=== PATIENT | male | born 1980 | race Caucasian/White ===

== ENCOUNTER 2019-04-28 15:32 | Inpatient (IN) ==
[2019-04-28] MEDS ORDERED: 0.9 % Sodium Chloride 1,000 ML IVC ONE (16:33)
[2019-04-28] MEDS ORDERED: Ondansetron 4 MG/2 ML VIAL IVP ONE (16:33)
[2019-04-28] MEDS ORDERED: Isovue-370 500 ML BOTTLE IVP ONE (16:33)
--- NOTE | 2019-04-28 16:35 | Emergency Department Note ---
Disposition Clinical Impression: Chest pain, Acute renal failure, Hypercalcemia STEMI (ST elevation myocardial infarction) Qualifiers: Involved coronary artery: unspecified coronary artery Qualified Code(s): I21.3 - ST elevation (STEMI) myocardial infarction of unspecified site Disposition: Admitted As Inpatient Condition: Critical Referrals: NONE,PCP [Primary Care Provider] - Forms: ED Satisfaction Letter Time of Disposition: 17:00 Chest Pain HPI - General Chief Complaint: ED Chest Pain Stated Complaint: N/V, Chest pain Time Seen by Provider: 04/28/19 16:23 Source: EMS Limitations: no limitations Vital Signs Reviewed: Yes Nursing Notes Reviewed: Yes - History of Present Illness HPI Narrative: 39-year-old male presents emergency department after concern for feeling like c ramps and Flexeril today as well as chest tightness. Patient states that the chest tightness getting worse and he feels very sweaty. Patient denies a history of coronary artery disease, but states that he is a smoker. Reports that his sister had a heart attack in her 30s. States that he has been outside for the last 4 hours and was very sweaty and went on to take a shower before stating that he felt like he had a lot of charley horses in his legs. Duration: constant Severity scale (1-10): 7 - Related Data Home Medications Medication Instructions Recorded Confirmed Buprenorphine HCl/Naloxone HCl 1 film SL BID 02/09/18 02/09/18 [Suboxone 8 mg-2 mg Sl Film] Omeprazole [PriLOSEC] 20 mg PO DAILY 02/09/18 02/09/18 Allergies Allergy/AdvReac Type Severity Reaction Status Date / Time No Known Allergies Allergy Verified 02/09/18 09:29 All systems ED: reviewed and negative except as stated. Review of Systems: As Per HPI Constitutional: Reports: chills. Denies: fever Cardiovascular: Reports: chest pain Respiratory: Reports: dyspnea Gastrointestinal: Reports: nausea, vomiting. Denies: abdominal pain Genitourinary: Denies: dysuria Musculoskeletal: Denies: back pain Chest Pain PMH - Past Medical History Medical history: Reports: GERD, hepatitis, other Surgical history: Reports: no surgical history Psychiatric history: Reports: no psych history - Social History Smoking Status: Current every day smoker Alcohol use: Reports: none Drug use: Reports: none Physical Exam - General Limitations: no limitations General appearance: alert - Head Head exam: normocephalic - Eye Eye exam: Present: EOMI - ENT ENT exam: mucous membranes moist - Neck Neck exam: Present: trachea midline - Chest Chest inspection: Present: symmetric chest wall rise - Respiratory Respiratory exam: Present: normal lung sounds bilaterally. Absent: respiratory distress, accessory muscle use - Cardiovascular Cardiovascular exam: Present: bradycardia, normal heart sounds - Abdominal Exam Abdominal exam: Present: soft, Non-Tender. Absent: distention, guarding, rebound, rigidity - Extremities Exam Extremities exam: Present: normal capillary refill - Back Exam Back exam: Present: full ROM - Neurological Exam Neurological exam: Present: alert, oriented X3 - Skin Skin exam: Present: warm, dry, intact, diaphoresis Course Vital Signs Temperature 90.0 F L 04/28/19 15:39 Pulse Rate 72 04/28/19 15:39 Respiratory Rate 20 04/28/19 15:39 Blood Pressure 135/92 04/28/19 15:39 O2 Sat by Pulse Oximetry 96 04/28/19 15:39 Temperature 96 F L 04/28/19 17:03 Pulse Rate 49 04/28/19 17:03 Respiratory Rate 17 04/28/19 17:03 Blood Pressure 125/69 04/28/19 17:03 O2 Sat by Pulse Oximetry 99 04/28/19 17:03 Oxygen Delivery Oxygen Delivery Nasal Cannula Chest Pain - MDM Narrative Medical decision making narrative: 39-year-old male presents emergency department with concern for chest tightness with inferior ST elevation concerning for acute ST elevation myocardial in farction. Patient's initial ECG that we received did not show evidence of any ischemic changes. Repeat that was performed at [address] elevations that are new in leads 2, 3, aVF, with new T-wave inversion in aVL that was not seen on previous ECG. Also noted that patient has an ectopic atrial rhythm as well. Patient fluctuates with heart rates in the 60s to low 40s with systolic blood pressures approaching the low 100s. Initial temperature that was recorded was 90 degrees Fahrenheit, but patient was extremely diaphoretic. Repeat temperature was 96 degrees axillary. Upon receipt of the second ECG at 1652, Quality Control Coordinator was activated. Interventional cardiology, Dr. Beltran, received picture of the ECG. Patient given aspirin, Brilinta, started on heparin. Pacer pads were placed. Patient was given fentanyl for pain. He was given a liter of fluids IV. Patient made hemodynamically stable while heart catheterization team put in place. Chest X-Ray 04/28/19 16:24 IMPRESSION: No acute abnormality detected. D/ / Clinton Vasquez MD / Clinton Vasquez MD Interpreting Provider: Clinton Vasquez MD - Lab Data Result diagrams: 04/28/19 15:55 04/28/19 15:55 Lab Results 04/28/19 04/28/19 04/28/19 Range/Units 15:55 15:55 15:55 WBC 15.1 H (4.3-11.1) K/mcL RBC 6.15 H (4.19-5.50) M/mcL Hgb 18.4 H (12.9-16.9) g/dL Hct 52.1 H (37.5-50.1) % MCV 84.7 (83.0-100.0) fL MCH 29.9 (28.0-33.3) pg MCHC 35.3 (31.6-35.5) g/dL RDW 12.0 (11.5-14.5) % Plt Count 337 (140-400) K/mcL MPV 10.2 (9.4-12.4) fL Immature Gran % 0.6 (0-4) % Seg Neutrophils % 71.4 % Lymphocytes % 20.1 % Monocytes % 7.0 % Eosinophils % 0.3 % Basophils % 0.6 % Neutrophils # 10.8 H (1.6-8.9) K/mcL Lymphocytes # 3.0 (0.6-4.6) K/mcL Monocytes # 1.1 (0.0-1.3) K/mcL Eosinophils # 0.1 (0.0-0.6) K/mcL Basophils # 0.1 (0.0-0.2) K/mcL Nucleated RBCs/100 WBC 0.1 H (0) /100 WBC PT 11.4 (9.4-12.1) Seconds INR 1.0 APTT 31.0 (26.0-36.0) Seconds Heparin Anti-Xa, Unfract 0.04 L (0.30-0.70) IU/mL Sodium 139 (136-145) mEq/L Potassium 3.7 (3.5-5.1) mEq/L Chloride 97 L (98-107) mEq/L Carbon Dioxide 19 L (23-29) mEq/L BUN 25 H (6-20) mg/dL Creatinine 1.53 H (0.70-1.30) mg/dL Est GFR ( Amer) > 60 (> 60) Est GFR (Non-Af Amer) 51 L (> 60) BUN/Creatinine Ratio 16 (6-26) Glucose 106 H (70-105) mg/dL Calculated Osmolality 293 (280-300) Calcium 12.1 H (8.6-10.3) mg/dL Troponin I < 0.03 (< 0.04) ng/mL B-Natriuretic Peptide (Less than 100) pg/mL 04/28/19 Range/Units 15:55 WBC (4.3-11.1) K/mcL RBC (4.19-5.50) M/mcL Hgb (12.9-16.9) g/dL Hct (37.5-50.1) % MCV (83.0-100.0) fL MCH (28.0-33.3) pg MCHC (31.6-35.5) g/dL RDW (11.5-14.5) % Plt Count (140-400) K/mcL MPV (9.4-12.4) fL Immature Gran % (0-4) % Seg Neutrophils % % Lymphocytes % % Monocytes % % Eosinophils % % Basophils % % Neutrophils # (1.6-8.9) K/mcL Lymphocytes # (0.6-4.6) K/mcL Monocytes # (0.0-1.3) K/mcL Eosinophils # (0.0-0.6) K/mcL Basophils # (0.0-0.2) K/mcL Nucleated RBCs/100 WBC (0) /100 WBC PT (9.4-12.1) Seconds INR APTT (26.0-36.0) Seconds Heparin Anti-Xa, Unfract (0.30-0.70) IU/mL Sodium (136-145) mEq/L Potassium (3.5-5.1) mEq/L Chloride (98-107) mEq/L Carbon Dioxide (23-29) mEq/L BUN (6-20) mg/dL Creatinine (0.70-1.30) mg/dL Est GFR ( Amer) (> 60) Est GFR (Non-Af Amer) (> 60) BUN/Creatinine Ratio (6-26) Glucose (70-105) mg/dL Calculated Osmolality (280-300) Calcium (8.6-10.3) mg/dL Troponin I (< 0.04) ng/mL B-Natriuretic Peptide 19 (Less than 100) pg/mL - Radiology Data Radiology results reviewed: Yes I reviewed the patient's radiology results. - EKG Data EKG attestation: Yes I reviewed and interpreted this EKG. EKG results narrative: 16:25 Heart rate 50 bpm, MD interval 140 ms, QRS duration 110 ms, QTC 460 ms, 1 mm of elevation in V3, V4, but no reciprocal changes and probably early repolarization pattern 16:[address] elevations in the inferior leads 2, 3, aVF concerning for STEMI. There is a T-wave inversion in aVL. STEMI alert was called immediately. Dr. Beltran was sent ECG picture. Attestation Statement - Attestation Attestation: I have seen this patient with the resident physician, I have personally evaluated this patient. I had reviewed the chart and document dictation by the resident physician and aM in agreement with the information documented by the resident physician. Please see documentation by the resident physician for complete chart including past medical history, family medical history, review of systems, current history and physical and laboratory and imaging studies. I was present for all procedures, provided direct supervision for all procedures, was present for the entirety of all procedures and provided direct guidance during the procedures. Please see documentation by the resident chapin cardona for any procedures performed. I have reviewed all interpretations of EKGs, and reviewed all EKGs performed on patient's as well. I have also reviewed reports of imaging as provided by radio logy. Patient was brought in by ambulance, for having worked outside for 4 hours, diaphoresis and charley horses would develop chest pain en route to the hospital. arrived at 1545, assigned to me at 1625, notified of patient's arrival, and symptoms, EKG and laboratory studies were ordered. Initial EKG performed at 1625, demonstrated nonspecific abnormality with no evidence of acute ST segment elevation, some poor R-wave progression. At 1636, noted some monitor changes by nursing, patient with persistent chest heaviness and persistent diaphoresis, repeat EKG was obtained at 1637, reviewed by myself at 1638, with acute changes concerning for potential acute ST segment elevation myocardial infarction, appears to be an ectopic atrial rhythm, with ST elevations in II, III, and F aVF, these have the appearance of early repolarization but are dynamic changes with aVL being inverted as well. Initiated cardiac alert, cardiology evaluated the EKG, states that he agrees that this is atypical morphology, but with acute changes in patient's symptoms that continuation with cardiac catheterization is appropriate and he will provide further management thereof. Repeat EKG was ordered during the patient's stay in the emergency department, at 1652 while awaiting cardiac catheterization just for any acute change, appears stable, in regards to this. Basic laboratory studies show a mild leukocytosis chest x-ray showed no acute findings. He was given aspirin and heparin here in the emergency department, he was given IV fluids. Avoided nitroglycerin secondary to inferior abnormality, with potential need for preload dependence. He was given fentanyl for pain. Basic laboratory studies demonstrated acute renal injury, with a creatinine 1.5 up from 1, calcium was elevated at 12.1. Cardiac enzymes were negative. The patient was taken to the Quality Control Coordinator by cardiology prior to any other laboratory studies being resulted including total CPK. Total critical care time as provided by myself excluding any procedures performed was 30 minutes
[2019-04-28] MEDS ORDERED: Aspirin 81 MG TAB.CHEW PO ONE (16:42)
[2019-04-28 16:46] LABS: Basophils # 0.1 K/mcL (0.0-0.2); Basophils % 0.6 %; Eosinophils # 0.1 K/mcL (0.0-0.6); Eosinophils % 0.3 %; Hematocrit 52.1 % (37.5-50.1); Hemoglobin 18.4 g/dL (12.9-16.9); Immature Granulocytes % 0.6 % (0-4); Lymphocytes % 20.1 %; Mean Corpuscular HGB Conc 35.3 g/dL (31.6-35.5); Mean Corpuscular Hemoglobin 29.9 pg (28.0-33.3); Mean Corpuscular Volume 84.7 fL (83.0-100.0); Mean Platelet Volume 10.2 fL (9.4-12.4); Monocytes # 1.1 K/mcL (0.0-1.3); Neutrophils # 10.8 K/mcL (1.6-8.9); Nucleated Red Blood Cells 0.1 /100 WBC (0); Platelet Count 337 K/mcL (140-400); Red Blood Count 6.15 M/mcL (4.19-5.50); Segmented Neutrophils % 71.4 %; White Blood Count 15.1 K/mcL (4.3-11.1)
[2019-04-28] MEDS ORDERED: *HR* Ticagrelor 90 MG TABLET ONE ×2 (16:47→16:59)
[2019-04-28] MEDS ORDERED: *HR* Heparin 5,000 UNIT/ML VIAL ONE (16:47)
[2019-04-28] MEDS ORDERED: 0.9 % Sodium Chloride 1,000 ML ONE ×2 (16:47→16:54)
[2019-04-28] MEDS ORDERED: Aspirin 81 MG TAB.CHEW ONE ×2 (16:47→16:58)
[2019-04-28] MEDS ORDERED: *HR* Ticagrelor 90 MG TABLET PO ONE (16:49)
[2019-04-28] MEDS ORDERED: *HR* Heparin 5,000 UNIT/ML VIAL IVP ONE (16:50)
[2019-04-28] MEDS ORDERED: *HR* Heparin 5,000 UNIT/ML VIAL IVP PRN ×2 (16:50)
[2019-04-28] MEDS ORDERED: *HR* FentaNYL (PF) 100 MCG/2 ML VIAL IVP ONE (16:54)
[2019-04-28] MEDS ORDERED: Verapamil 5 MG/2 ML VIAL ONE (16:54)
[2019-04-28] MEDS ORDERED: ISOVUE-370 200 ML INFUS..BTL ONE (16:55)
[2019-04-28] MEDS ORDERED: *HR* Heparin 10,000 UNIT/10 ML VIAL ONE (16:55)
[2019-04-28] MEDS ORDERED: Heparin 1,000 UNITS/500 mL 500 ML ONE (16:55)
[2019-04-28] MEDS ORDERED: Nitroglycerin 1,000 MCG/10 ML VIAL IV ONE (16:55)
[2019-04-28 16:58] LABS: Prothrombin Time 11.4 Seconds (9.4-12.1)
[2019-04-28] MEDS ORDERED: Heparin 25,000 UNIT/250 ML D5W 25,000 UNIT/250 ML IV.SOLN IVC SCH (17:00)
[2019-04-28] MEDS ORDERED: *HR* FentaNYL (PF) 100 MCG/2 ML VIAL ONE (17:04)
[2019-04-28] MEDS ORDERED: *HR* Midazolam HCl 2 MG/2 ML VIAL ONE ×2 (17:04→17:23)
[2019-04-28 17:07] LABS: BUN/Creatinine Ratio 16 (6-26); Blood Urea Nitrogen 25 mg/dL (6-20); Calcium 12.1 mg/dL (8.6-10.3); Carbon Dioxide 19 mEq/L (23-29); Chloride 97 mEq/L (98-107); Glucose 106 mg/dL (70-105); Osmolality,Calculated 293 (280-300); Potassium 3.7 mEq/L (3.5-5.1); Sodium 139 mEq/L (136-145); Troponin I < 0.03 ng/mL (< 0.04); eGFR For African Americans > 60 (> 60); eGFR For Non-African Americans 51 (> 60)
[2019-04-28 17:15] LABS: Heparin anti-factor XA UFH 0.04 IU/mL (0.30-0.70)
[2019-04-28] MEDS ORDERED: Tirofiban 12.5 MG/250ML 12.5 MG/250 ML BAG ONE (17:23)
[2019-04-28] MEDS ORDERED: Haloperidol Lactate 5 MG/ML VIAL ONE (17:30)
[2019-04-28] MEDS ORDERED: Ondansetron 4 MG/2 ML VIAL IVP PRN (17:40)
--- NOTE | 2019-04-28 17:40 | Pre-Sedation Evaluation ---
Pre-sedation evaluation - Pre-sedation checklist Date of procedure: 04/28/19 Procedure: [facility] Recent Vitals: Last Vital Signs Temp 96 F L 04/28/19 17:03 Pulse 49 04/28/19 17:03 Resp 17 04/28/19 17:03 BP 125/69 04/28/19 17:03 Pulse Ox 99 04/28/19 17:03 H&P (including ROS) documented in medical record: Yes Previous reaction to sedatives/anesthetics: No Dietary Status: NPO after Midnight Dentition: full dentition ASA Classification *see protocol: CLASS II-Mild systemic disease, [id number] to any of the above to indicate emergent Plan of Care: Pt appropriate candidate for procedure/moderate/conscious sedation, Risks/benefits of procedure/sedation discussed w/ patient/family, If not NPO; Risk of intake outweiged by necessity to perform procedure Cardiac Registry (Cardio Only) - Functional Capacity Functional Capacity: >=4 METS with symptoms - Clincal Frailty Scale Clinical Frailty Scale: Managing Well
[2019-04-28 17:47] LABS: Albumin 6.4 g/dL (3.5-5.7); Albumin/Globulin Ratio 1.7 (1.1-2.2); Bilirubin,Direct 0.2 mg/dL (0.0-0.2); Bilirubin,Indirect 0.8 mg/dL (0.0-1.2); Globulin 3.8 g/dL (2.4-3.5); Magnesium 2.4 mg/dL (1.6-2.6); Total Protein 10.2 g/dL (6.4-8.9)
--- NOTE | 2019-04-28 17:58 | Invasive Diagnostic Lab Proc ---
Name: Ryan Cha Date of Study: 04/28/2019 Date: 1980 Ht: 68.1in Medical Record#: [id number] Age: 39 Wt: 138.89lb Gender: Male BSA: 1.75 Order #: [id number] BMI: 21.05 Physicians Procedure Physician: Job Beltran MD, [facility] Referring MD: Referring MD: Staff Name Position Time In Unique Monreal RT (R) Monitor 05:18 PM Markell Monreal RT (R) Scrub 05:18 PM SarayDeanna holliday RT (R) Monitor 05:18 PM Geovanny Post RN Makeup Sales Consultant 05:18 PM Bry Motta RN Makeup Sales Consultant 05:18 PM Indications Indication Unstable Angina Procedures Performed Procedure L HRT ARTERY/VENTRICLE ANGIO Pre-Procedure Checklist Informed consent is complete signed and on chart. H&P is on chart. ID band is on and ID verified with patient. Patient NPO for procedure The procedure was described for the patient and questions were answered. Blood Pressure: 121/60 ECG is on chart. Rhythm: Sinus Bradycardia Plan of Care Patient will tolerate the procedure without complications. Adequate level of comfort will be maintained. Hemodynamics will remain stable Patient will recover from procedure without complications. Respiratory function will be maintained. Cardiac rhythm will remain stable. Patient temperature will be maintained. Patient and/or family have verbalized understanding of the procedure. Patient Education Chief Complaint/Reason for Test: Cardiac Cath Developmental Category: Adult (18-64 years) Developmentally Appropriate for Age: Yes Learning Barriers: None Education Needs: Procedure Education Method: Verbal Information Taught: Cardiac Cath Educational Evaluation: Able to repeat information Intravenous Access Time IV Size Location DC'd Fluid/Drip Rate Units RN 05:12 PM 20g 1 1/4" Patent On Arrival Lt Antecubital 0.9NaCl 25 ml/hr Geovanny Post RN 05:12 PM 20g 1 1/4" Patent On Arrival Rt Antecubital Geovanny Post RN Allergies NKDA No Known Allergies Vital Signs Time BP (mmHg) HR (bpm) O2 Sat. RR (bpm) LOC 05:19 PM / % 5 = Fully awake and oriented or at pre-proc level 05:19 PM / % 4 = Oriented but drowsy 05:20 PM 121 / 60 90 87 % 16 05:24 PM 112 / 65 55 87 % 16 05:32 PM 118 / 69 71 100 % 16 05:37 PM 128 / 74 69 100 % 12 Procedural Medications Time Medication Dose Units Method Given By 05:19 PM Versed 2 mg Intravenous Geovanny Post RN 05:19 PM Fentanyl 50 mcg Intravenous Geovanny Post RN 05:20 PM Oxygen 4 L/min nasal cannula Geovanny Post RN 05:24 PM Lidocaine 2% 8 ml Subcutaneous Job Beltran MD, FACC 05:25 PM Versed 1 mg Intravenous Geovanny Post RN 05:25 PM Fentanyl 25 mcg Intravenous Geovanny Post RN 05:30 PM Haldol 5 mg Intravenous Geovanny Post RN Leslie Score Preprocedure Postprocedure Activity 2- Moves 4 extremities sustained head lift Activity 2- Moves 4 extremities sustained head lift Circulation 2- SBP +/= 20 points of pre-anesthetic level Circulation 2- SBP +/= 20 points of pre-anesthetic level Consciousness 2- Awake and alert oriented x 3 Consciousness 2- Awake and alert oriented x 3 O2 Saturation 2- Able to maintain O2 satruation of 92% on room air O2 Saturation 2- Able to maintain O2 satruation of 92% on room air Respiratory 2- Able to deep breathe and cough well Respiratory 2- Able to deep breathe and cough well Total Score 10 Total Score 10 Contrast Agent: Isovue Diagnostic Contrast: 48 ml Total Contrast: 48 ml Fluoro Dose: 4 mGy Activated Clotting Time Time Seconds to Clot 05:38 PM 245 Procedure Log Time Note Enter By 05:13 PM Pt arrived to laboratory chief 2 at 17:13 twilson 05:13 PM Patient charges- Angio tray pack, Navilyst 3mm J, Pulse Oximetry and ACIST tubing and transducer twilson 05:13 PM Case Delayed no twilson 05:17 PM CathStat 05:18 PM CathStat 05:18 PM Vitals capture started with the following parameters, Patient=Adult, Interval=5 min, Initial Rqziixzp=947 mmHg, Deflation Rate=3 mmHg, Cuff placed on Right Arm 05:18 PM Unique Monreal RT (R) Position: Monitor Time in: 17:18 twilson 05:18 PM Markell Monreal RT (R) Position: Scrub Time in: 17:18 twilson 05:18 PM Deanna So RT (R) Position: Monitor Time in: 17:18 twilson 05:18 PM Sincere, Geovanny RN Position: Makeup Sales Consultant Time in: 17:18 twilson 05:18 PM Bry Motta RN Position: Makeup Sales Consultant Time in: :18 twilson PM Hair removed from procedure site in procedure lab using clippers. Right wrist and Right groin prepped with Chloraprep by Deanna So (Tanner), then patient was draped. Skin intact. PM Physician arrived 17: tw PM Meet and greet completed PM Sign in performed according to hospital policy. Informed consent was obtained. tw PM Procedure start : twilson PM Time: : Versed 2 mg Intravenous Given by Geovanny Post RN PM Time: : Fentanyl 50 mcg Intravenous Given by Geovanny Post RN twilson PM Time: 17: Patient comfortable and pain free: Yes PM Time: :LOC: 5 = Fully awake and oriented or at pre-proc level twilson : PM Clinical Presentation: STEMI or equivalent twilson 05:20 PM HR=90 bpm, OBOP=048/60 mmhg, SpO2=87 %, Resp=16 B/min 05:21 PM Time: 17:20 Oxygen on at 4 L/min per nasal cannula by Geovanny Post RN twilson : PM Recorded ECG: HR=59 Condition=Condition 1 05:23 PM Pressure channel 1 zeroed. 05:23 PM Critical cardiac patient with acute MS was brought emergently to the cardiac rn labor and delivery for immediate coronary angiography and intervention if clinically indicated. tw: PM Time out was performed according to hospital policy. Conscious sedation and anesthesia was achieved (see medication log with in this report above) twilson : PM HR=55 bpm, KILY=922/65 mmhg, SpO2=87 %, Resp=16 B/min 05: PM Time: 17:24 8 ml Lidocaine 2% to right groin Subcutaneous Given by Job Beltran MD, FACC twilson : PM Access obtained by percutaneous puncture. 6Fr 10cm Terumo Hamilton sheath placed in right Femoral artery. [id number] twilson : PM 5Fr FR 4 catheter inserted over the wire DNC twilson 05:25 PM Time: 17:25 Versed 1 mg Intravenous Given by Geovanny Post RN ilson 05:25 PM Time: 17:25 Fentanyl 25 mcg Intravenous Given by Geovanny Post RN 05: PM Wire removed twilson 05: PM RCA angiography performed in multiple views. twilson 05:27 PM Wire reinserted. twilson 05:27 PM Catheter removed tw 05: PM 5Fr FL 4 catheter inserted over the wire [facility] twilson 05:28 PM Wire removed twilson 05:28 PM Recorded Pressure: Ao, HR=58, Condition=Condition 1 (Aorta) Ao 111/73/92 05:28 PM Recorded Pressure: Ao, HR=54, Condition=Condition 1 (Aorta) Ao 96/61/79 05:28 PM Recorded Pressure: Ao, HR=91, Condition=Condition 1 (Aorta) Ao 113/90/102 05:30 PM LCA angiography performed in multiple views. twilson 05:30 PM Recorded Pressure: Ao, HR=75, Condition=Condition 1 (Aorta) Ao 116/85/101 05:31 PM Time: 17:30 Haldol 5 mg Intravenous Given by Geovanny Post RN twilson 05:31 PM Vitals capture stopped. 05:31 PM Vitals capture started with the following parameters, Patient=Adult, Interval=5 min, Initial Aswfeeoa=171 mmHg, Deflation Rate=3 mmHg, Cuff placed on Right Arm 05:31 PM Wire reinserted. tw 05:32 PM Catheter removed tw 05:32 PM 5Fr Pigtail catheter inserted over the wire [facility] tw 05:32 PM Catheter crossed the aortic valve and was selectively placed in the left ventricle. Pressures recorded on pullback for left heart catheterization. tw 05:32 PM Wire removed twilson 05:32 PM Recorded Pressure: LV, HR=54, Condition=Condition 1 (Left Ventricle) LV 115/-20/3 05:32 PM HR=71 bpm, WFFZ=712/69 mmhg, PrN5=715.0 %, Resp=16 B/min 05:33 PM Recorded Pressure: LV, Ao, HR=65, Condition=Condition 1 (Left Ventricle) LV 105/-8/31, (Aorta) Ao 107/56/81 05:33 PM Bolus angiogram of left Ventricle complete: 10 ml/sec for a total of 30 mls twilson 05:33 PM Wire reinserted. tw 05:33 PM Catheter and wire removed, intact. twilson 05:34 PM Bolus angiogram of right Femoral complete: 2 ml/sec for a total of 4 mls twilson 05:34 PM Time: 17:19 Patient comfortable and pain free: Yes twilson 05:34 PM Time: 17:19LOC: 4 = Oriented but drowsy twilson 05:34 PM Drawing an ACT. twilson 05:35 PM Procedure completed at 17:35 04/28/2019 twilson 05:35 PM Did you address ARVIN flow and Dominance? YesCoronary Dominance: right twilson 05:37 PM Sign out completed: Radiation Dose 26.03 mGy, 4.37 Gy/cm2 Fluoro Time: 1.1 Isovue 370 - 200ml contrast 48 ml given by Job Beltran MD, [facility]. Complications: None. The patient was discharged out of the rn labor and delivery in stable condition. Sedation minutes 15. Cardiac Rehab Consult needed: No. Confirmed administered medications: Yes twilson 05:37 PM Isovue 370 - 200ml,1 Bottle(s) used. twilson 05:37 PM Estimated Blood Loss: minimal twilson 05:37 PM Post ECG Sinus Bradycardia twilson 05:37 PM HR=69 bpm, KDDK=374/74 mmhg, KtO5=403.0 %, Resp=12 B/min 05:38 PM 17:38 Post Pulses Bilateral DP & PT 1+ twilson 05:38 PM Information taught Cardiac Cath twilson 05:38 PM Education needs Procedure, Plan of Care, and Responsibilities of Patient in Care twilson 05:38 PM Learning barriers :None twilson 05:38 PM Education Methods Verbal twilson 05:38 PM Education evaluation Able to repeat information twilson 05:38 PM Site status No bleeding/ No Hematoma - Rt Groin as reported by Markell Monreal RT (R) at 17:38 twilson 05:38 PM Sheath left in place to be pulled on floor/holding areaV+Pad twilson 05:38 PM At 17:38 the ACT was 245 seconds. twilson 05:39 PM Opsite applied twilson 05:39 PM Family placed in consult room. twilson 05:42 PM Vitals capture stopped. 05:46 PM Delay to floor No twilson 05:46 PM Patient out of room: 17:46 twilson 05:47 PM Report given to Asif SHI Pt taken to ICU Room #11. 17:47 twilson Complications Complication None Hemodynamics Pressures Site Systolic/A Wave Diastolic/V Wave Mean AO 111 73 92 AO 96 61 79 AO 113 90 102 AO 116 85 101 LV 115 -20 3 LV 105 -8 31 AO 107 56 81 Post Procedure Information Rhythm: Sinus Bradycardia Post procedural instructions were given Site Checks Time Location Status Staff Sheath In? Note 05:38 PM Rt Groin No bleeding/ No Hematoma Markell Monreal RT (R) Yes Pulses Time Site Pre-Procedure Post-Procedure Note 04/28/2019 5:12:00 PM Bilateral DP & PT 1+ 04/28/2019 5:12:00 PM Bilateral radial 1+ 5:38:00 PM Bilateral DP & PT 1+ Updated by RT Slim (R) on 04/28/2019 5:50:03 PM electronically signed on 04/28/2019 5:50:53 PM with status of Final
[2019-04-28] MEDS ORDERED: *HR* Atropine Sulfate 1 MG/10 ML SYRINGE ONE (19:19)
[2019-04-28 19:30] LABS: Albumin 4.8 g/dL (3.5-5.7); Albumin/Globulin Ratio 1.5 (1.1-2.2); Bilirubin,Direct 0.2 mg/dL (0.0-0.2); Bilirubin,Indirect 0.6 mg/dL (0.0-1.2); Bilirubin,Total 0.8 mg/dL (0.3-1.0); Globulin 3.1 g/dL (2.4-3.5); Total Protein 7.9 g/dL (6.4-8.9)
[2019-04-28] MEDS ORDERED: Haloperidol Lactate 5 MG/ML VIAL IVP PRN (20:18)
--- NOTE | 2019-04-28 20:22 | Cardiology History & Physical ---
Date of Encounter: 04/28/19 Time of Encounter: 20:00 Assessment and Plan (1) STEMI (ST elevation myocardial infarction) Current Visit: Yes Status: Acute Concern for inferior STEMI. A/R/B of emergent LHC dw patient including 1% chance of NM//CVA/CABG/ANGELITO/bleeding. Pt aware and agreeable with proceeding. EF assessment to be completed. Cardiac rehab if warranted. The assessment and plan as outlined above was discussed with the patient and/or f amily members who expressed understanding and agreement. All questions were answered. Qualifiers: Involved coronary artery: unspecified coronary artery Qualified Code(s): I21.3 - ST elevation (STEMI) myocardial infarction of unspecified site (2) Chest pain Current Visit: Yes Status: Acute Proceed with [facility] per above. The assessment and plan as outlined above was discussed with the patient and/or family members who expressed understanding and agreement. All questions were answered. Qualifiers: Chest pain type: precordial pain Qualified Code(s): R07.2 - Precordial pain History of Present Illness Chief complaint: leg cramps, nausea/vomiting, chest tightness HPI: Mr. Cha is a 39 year old male smoker with family history of CAD and his tory of opiod drug abuse presents with nausea / vomiting, severe leg cramps, back pain and chest tightness. EKG was concerning for inferior ST elevation and STEMI team was activated. His pains were not improved with aspirin, brilinta and heparin. Past Med Surg Social Fam HX - Past Medical History Medical history: GERD, hepatitis, other Additional medical history: hepatitis C Psychiatric history: no psych history - Past Surgical History Surgical History: no surgical history Additional surgical history: Liver biopsy - Social History Smoking Status: Current every day smoker Smokeless Tobacco Status: No Alcohol use: none Drug use: none Medications and Allergies Buprenorphine HCl/Naloxone HCl [Suboxone 8 mg-2 mg Sl Film] 1 film SL BID 02/09/18 [History] Omeprazole [PriLOSEC] 20 mg PO DAILY 02/09/18 [History] Allergy/AdvReac Type Severity Reaction Status Date / Time No Known Allergies Allergy Verified 02/09/18 09:29 All Systems Review: The remainder of the systems were reviewed and are negative - Constitutional Constitutional: no chills, no fever(s) - EENT Eyes: no blurred vision, no loss of vision Nose, mouth and throat: no bleeding gums, no throat swelling - Cardiovascular Cardiovascular: chest pain at rest, chest pain with exertion - Respiratory Respiratory: no hemoptysis, no wheezing - Gastrointestinal Gastrointestinal: nausea, no hematemesis, no hematochezia - Genitourinary Genitourinary: no hematuria, no nocturia - Musculoskeletal Musculoskeletal: no arthralgias, no myalgias - Integumentary Integumentary: no erythema, no unusual bruising - Neurological Neurological: no syncope, no tingling - Psychiatric Psychiatric: no hallucinations, no panic attacks - Hematological/Lymphatic Hematologic/Lymphatic: no easy bleeding, no easy bruising Physical Examination Vital Signs, Last 4 Hours Temp Pulse Pulse Resp BP Pulse Ox 04/28/19 19:45 58 16 76/56 98 04/28/19 19:40 56 18 114/84 98 04/28/19 19:35 58 20 102/78 98 04/28/19 19:30 978 F H 71 71 18 114/78 98 04/28/19 19:00 97.3 F L 57 62 18 110/61 98 04/28/19 18:30 97.3 F L 69 62 18 100/56 98 04/28/19 18:15 97.3 F L 69 69 18 102/57 98 04/28/19 18:00 97.3 F L 62 62 18 112/76 98 04/28/19 17:50 97.3 F L 66 63 18 103/62 98 04/28/19 17:40 17 125/69 04/28/19 17:03 96 F L 49 17 125/69 99 General: Conversant, Other (severely distressed) HEENT: Atraumatic Neck: No JVD Cardiac: Reg Rate and Rhythm Lungs: Normal Breath Sounds Neuro: Alert and responsive Abdomen: Soft Skin: No rashes noted on visualized skin Musculoskeletal: No Chest Wall Tenderness Extremities: No Edema Results 04/28/19 15:55 04/28/19 15:55 Lab Results 04/28/19 04/28/19 04/28/19 15:55 15:55 15:55 WBC 15.1 H Hgb 18.4 H Hct 52.1 H Plt Count 337 INR 1.0 APTT 31.0 Sodium 139 Potassium 3.7 Chloride 97 L Carbon Dioxide 19 L BUN 25 H Creatinine 1.53 H Glucose 106 H Calcium 12.1 H Magnesium Total Bilirubin AST ALT Alkaline Phosphatase Troponin I < 0.03 B-Natriuretic Peptide Lipase 04/28/19 04/28/19 04/28/19 15:55 15:55 18:37 WBC Hgb Hct Plt Count INR APTT Sodium Potassium Chloride Carbon Dioxide BUN Creatinine Glucose Calcium Magnesium 2.4 2.2 Total Bilirubin 1.0 AST 31 ALT 36 Alkaline Phosphatase 90 Troponin I B-Natriuretic Peptide 19 Lipase 12 04/28/19 18:37 WBC Hgb Hct Plt Count INR APTT Sodium Potassium Chloride Carbon Dioxide BUN Creatinine Glucose Calcium Magnesium Total Bilirubin 0.8 AST 24 ALT 26 Alkaline Phosphatase 69 Troponin I B-Natriuretic Peptide Lipase - EKG Interpretation EKG results cardiology: personally reviewed, sinus rhythm (st elevation in inferior leads, v2 - v3)
[2019-04-28] MEDS: *HR* Buprenorphine HCl 8 MG TAB.SUBL SL SCH (20:54)
[2019-04-28] MEDS: BUPRENORPHINE HCL SL SCH (20:54)
[2019-04-28] MEDS: NALOXONE HCL SL SCH (20:54)
--- NOTE | 2019-04-28 22:06 | Event Note ---
Date of Encounter: 04/28/19 Time of Encounter: 17:55 - Cardiology Event Note Normal coronaries and EF by [facility]
[2019-04-28] MEDS ORDERED: Perflutren Lipid Microsphere 1.3 ML in 0.9 % Sodium Chloride 8.7 ML IVP ONE (22:36)
[2019-04-29 05:45] LABS: Basophils % 0.2 %; Eosinophils % 0.2 %; Hematocrit 42.2 % (37.5-50.1); Immature Granulocytes % 0.3 % (0-4); Lymphocytes # 1.6 K/mcL (0.6-4.6); Lymphocytes % 16.8 %; Mean Corpuscular HGB Conc 34.6 g/dL (31.6-35.5); Mean Corpuscular Hemoglobin 30.5 pg (28.0-33.3); Mean Corpuscular Volume 88.1 fL (83.0-100.0); Mean Platelet Volume 9.9 fL (9.4-12.4); Monocytes # 0.6 K/mcL (0.0-1.3); Monocytes % 6.1 %; Neutrophils # 7.2 K/mcL (1.6-8.9); Platelet Count 245 K/mcL (140-400); Red Blood Count 4.79 M/mcL (4.19-5.50); Red Cell Distribution Width 12.2 % (11.5-14.5); Segmented Neutrophils % 76.4 %; White Blood Count 9.4 K/mcL (4.3-11.1)
[2019-04-29 05:46] LABS: Hemoglobin 14.6 g/dL (12.9-16.9)
[2019-04-29] MEDS ORDERED: *HR* Enoxaparin 40 MG/0.4 ML SYRINGE SQ SCH (06:00)
[2019-04-29 06:02] LABS: BUN/Creatinine Ratio 21 (6-26); Blood Urea Nitrogen 24 mg/dL (6-20); Calcium 9.6 mg/dL (8.6-10.3); Carbon Dioxide 19 mEq/L (23-29); Chloride 103 mEq/L (98-107); Glucose 72 mg/dL (70-105); Osmolality,Calculated 287 (280-300); Potassium 4.1 mEq/L (3.5-5.1); Sodium 137 mEq/L (136-145); eGFR For African Americans > 60 (> 60); eGFR For Non-African Americans > 60 (> 60)
[2019-04-29] MEDS: *HR* Buprenorphine HCl 8 MG TAB.SUBL SL SCH (09:05)
[2019-04-29] MEDS: BUPRENORPHINE HCL SL SCH (09:05)
[2019-04-29] MEDS: NALOXONE HCL SL SCH (09:05)
[2019-04-29] MEDS ORDERED: 0.9 % Sodium Chloride 1,000 ML IVC SCH (09:30)
[2019-04-29] MEDS ORDERED: 0.9 % Sodium Chloride 1,000 ML ONE (09:30)
--- NOTE | 2019-04-29 10:13 | Event Note ---
Date of Encounter: 04/29/19 Time of Encounter: 09:00 - Cardiology Event Note Seen and examined earlier AM. Normal coronaries and normal LVEF per LHC/TTE. No complaints upon exam this AM. Will repeat labs at 11 AM, if stable plan to d/c home this afternoon. Suspect dehydration etiology of symptoms, consistent with presenting labs. Continue IVF until d/c. Discussed and reviewed with Dr. Alexandra.
[2019-04-29 12:07] VITALS: BP 103/75
--- NOTE | 2019-04-29 12:45 | Electrocardiograph Report ---
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
[2019-04-29 13:10] LABS: Basophils % 0.4 %; Eosinophils # 0.1 K/mcL (0.0-0.6); Eosinophils % 0.6 %; Hematocrit 40.6 % (37.5-50.1); Hemoglobin 14.2 g/dL (12.9-16.9); Immature Granulocytes % 0.2 % (0-4); Lymphocytes # 1.6 K/mcL (0.6-4.6); Lymphocytes % 18.9 %; Mean Corpuscular Hemoglobin 29.9 pg (28.0-33.3); Mean Corpuscular Volume 85.5 fL (83.0-100.0); Mean Platelet Volume 9.9 fL (9.4-12.4); Monocytes # 0.5 K/mcL (0.0-1.3); Monocytes % 5.8 %; Neutrophils # 6.1 K/mcL (1.6-8.9); Platelet Count 238 K/mcL (140-400); Red Blood Count 4.75 M/mcL (4.19-5.50); Red Cell Distribution Width 12.1 % (11.5-14.5); Segmented Neutrophils % 74.1 %; White Blood Count 8.3 K/mcL (4.3-11.1)
--- NOTE | 2019-04-29 13:30 | Discharge Summary ---
Orders not resulted at time of discharge: Pending orders 04/28/19 17:40 ECG 12 lead ECG [ECG] Routine ECG 12 lead ECG [ECG] Stat 04/28/19 18:37 Culture,Blood [BC] Stat 04/29/19 07:00 ECG 12 lead ECG [ECG] Routine 04/29/19 12:15 BMP [Basic Metabolic Panel] Routine Date of Encounter: 04/29/19 Time of Encounter: 13:00 - Discharge Diagnosis (1) Chest pain Priority: Primary Status: Acute Qualifiers: Chest pain type: precordial pain Qualified Code(s): R07.2 - Precordial pain (2) Acute renal failure Priority: Secondary Status: Resolved Qualifiers: Acute renal failure type: unspecified Qualified Code(s): N17.9 - Acute kidney failure, unspecified - Hospital Course Hospital course: Mr. Cha is a 39 year old male who presented to the ED with complaints of muscle cramping and chest pain. ECG was suspicious for AMI therefore patient was taken to the clinical laboratory service teacher--LHC demonstrated normal coronary arteries and normal EF per LV gram. TTE demonstrated normal EF with normal wall motion abnormality--no significant valvular dysfunction noted. Of note, troponin was negative. Labs upon arrival consistent with dehydration with KAREN--he was given IVF after LHC and symptoms resolved. Labs normal this AM and again this afternoon. No chest pain or any CV concerns upon exam today. Vitals and telemetry are stable. Mr. Cha is being prepped for discharge to home in stable condition. Post C restrictions discussed. Discussed and reviewed with Dr. Alexandra--no new medications recommended. Recommend close follow-up with PCP. Time spent discussing smoking cessation with patient: 3 to 10 minutes - Time Spent with Patient Total time spent providing and/or coordinating discharge services: 35 minutes Greater than 30 minutes Specific discharge activities: per post LHC restrictions. No heavy lifiting >5 lbs for 1 week. No driving x1 week - Discharge Medications Prescriptions: Continued Buprenorphine HCl/Naloxone HCl [Suboxone 8 mg-2 mg Sl Film] 1 each SL BID Home Medications: Buprenorphine HCl/Naloxone HCl [Suboxone 8 mg-2 mg Sl Film] 1 each SL BID 04/28/19 [History] Allergies/Adverse Reactions: Allergy/AdvReac Type Severity Reaction Status Date / Time No Known Allergies Allergy Verified 02/09/18 09:29 Date of admission: 04/28/19 17:56 Primary care physician: PCP NONE Consults: 04/28/19 17:40 Consult to Cardiac Rehabilitation-Phase1 [CONS] Routine Comment: Reason for Consult: AMI Call Completed: Yes Consult to Nurse Navigator [CONS] Routine Comment: Discharging clinician: Macey Bell Anticipated date of discharge: 04/29/19 Physical Examination Vital Signs, Last 4 Hours Temp Pulse Resp BP Pulse Ox 04/29/19 12:02 98.9 F 04/29/19 12:00 74 16 103/75 98 04/29/19 10:00 60 16 113/68 98 General: Conversant, No Apparent Distress HEENT: Atraumatic, Normocephaly, Mucus Membranes Moist Neck: No JVD, Normal carotid pulses Cardiac: Reg Rate and Rhythm, Normal S1 and S2, No Murmur Lungs: Normal Breath Sounds, No Wheeze, Rales, Rhonchi Neuro: Alert and responsive, No focal deficits noted Abdomen: Soft, Non-Tender Skin: No rashes noted on visualized skin Musculoskeletal: No Chest Wall Tenderness Extremities: No Clubbing, No Cyanosis, No Edema, Normal Pulses Other: right groin cath site: no hematoma or oozing noted at site. +2 PT/DP pulses. - Patient Status Disposition: Home, Self-Care Condition: Good Functional capacity at discharge: independent ambulation Overall status at discharge: patient is back to baseline - Discharge Instructions Follow Up With: NONE,PCP [Primary Care Provider] - Additional Instructions: RISK FACTORS: STOP SMOKING: If you smoke, STOP. Smoking or tobacco use significantly increases your risk of heart disease because nicotine causes the arteries to narrow or constrict. It also causes fats to stick to the artery. Your chances of having a heart attack are greatly increased if you continue to smoke. For more information, call the education line for smoking cessation 9-243-MPCXYIV EAT A LOW FAT/CHOLESTEROL/SODIUM DIET: This diet may help reduce your chances of having a heart attack. LIFTING: Avoid lifting anything more than 10 pounds for 5-7 days Prior to straining, laughing, sneezing and/or coughing, apply manual pressure directly over insertion site. ACTIVITY: You may walk or climb stairs as tolerated You can resume sexual activity as tolerated In general, you are encouraged to engage in a minimum of 30 minutes or more of moderate intensity physical activity, such as brisk walking, daily or at least 3-4 times weekly BATHING Do not submerge the site into water (bath tub, hot tub, swimming pool) for 1 week. This can be a source for infection into the blood stream. You may shower after 24 hours SITE CARE: After 24 hours, you may remove the dressing and leave the site open to air. Keep the site clean and dry. Clean gently and pat dry. You can expect bruising and tenderness that gradually resolve within a week or two. Return to work as instructed per your physician Resume driving as instructed per physician Keep all scheduled follow up appointments Resume medications as instructed IMPORTANT: If prescribed a Platelet Aggregation Inhibitor such as, Plavix, Brilinta or Effient: Duration of therapy is minimum one year These medications are often used in combination with Aspirin in prevention of future heart attacks Never discontinue unless consult with your Voucher Clerk STROKE (CVA) Risk factors for a stroke are: Age, cigarette smoking, diabetes, excessive alcohol consumption, family history, high blood pressure, overweight, physical inactivity, prior stroke, heart attack, diagnosis of carotid artery stenosis or other artery disease. Warning signs: Sudden numbness or weakness of the face, arm or leg; especially on one side of the body, sudden confusion, trouble speaking or understanding, sudden trouble seeing in one or both eyes, sudden trouble walking, dizziness, loss of balance or coordination, sudden severe headache with no cause. Call 911 or go to the Emergency Room. CONGESTIVE HEART FAILURE: If you have been diagnosed with Congestive Heart Failure (CHF) and your symptoms return, make an appointment with your physician Weigh yourself daily. Notify your physician if you have a weight gain of two or more pounds in one day or five or more pounds in one week. If you experience any difficulty breathing, please call 911 BLEEDING: Although the risk of bleeding is minimal, it can happen. If you have any bleeding from the site, apply firm pressure above the puncture site for 10-15 minutes. If the bleeding does not stop, continue manual pressure and call 911 Contact your physician if: You develop a fever greater than 101 degrees Fahrenheit Your site becomes reddened or has any drainage You have an increase in pain or burning at the site or if a large knot forms at the site. If you experience chest pain, shortness of breath, dizziness, or extreme tiredness, stop the activity and rest. Please notify your physicians office if you experience any of these symptoms and they are not relieved by rest please call 911! - Diet and Activity Activity: increase activity as tolerated (per post [facility] restrictions) Diet: low fat, low cholesterol, low salt diet
[2019-04-29 13:33] LABS: BUN/Creatinine Ratio 20 (6-26); Blood Urea Nitrogen 21 mg/dL (6-20); Calcium 9.2 mg/dL (8.6-10.3); Carbon Dioxide 24 mEq/L (23-29); Chloride 103 mEq/L (98-107); Glucose 130 mg/dL (70-105); Osmolality,Calculated 287 (280-300); Potassium 3.8 mEq/L (3.5-5.1); Sodium 136 mEq/L (136-145); eGFR For African Americans > 60 (> 60); eGFR For Non-African Americans > 60 (> 60)
--- NOTE | 2019-04-29 15:25 | Electrocardiograph Report ---
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
--- NOTE | 2019-04-29 15:25 | Electrocardiograph Report ---
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
== END 2019-04-29 13:42 | disposition home or self-care (01) | DRG 192 ==
LOC: EMEROOARM 15:32 → ICNU 17:03
PROVIDERS: ADMIT Emergency Medicine; ATTEND Emergency Medicine

== ENCOUNTER 2019-05-17 01:57 | Observation (INO) ==
--- NOTE | 2019-05-17 02:17 | Emergency Department Note ---
Disposition Clinical Impression: Chest pain Qualifiers: Chest pain type: other chest pain Qualified Code(s): R07.89 - Other chest pain A-fib Qualifiers: Atrial fibrillation type: unspecified Qualified Code(s): I48.91 - Unspecified atrial fibrillation Disposition: Admitted As Inpatient Condition: Good Time of Disposition: 06:12 General Adult HPI - General Stated complaint: vomit, shake, sweats Time Seen by Provider: 05/17/19 02:03 - Related Data Home Medications Medication Instructions Recorded Confirmed Buprenorphine HCl/Naloxone HCl 1 each SL BID 04/28/19 04/28/19 [Suboxone 8 mg-2 mg Sl Film] Allergies Allergy/AdvReac Type Severity Reaction Status Date / Time No Known Allergies Allergy Verified 02/09/18 09:29 Past Medical History - Past Medical History Medical history: Reports: GERD, hepatitis, other Surgical history: Reports: no surgical history Psychiatric history: Reports: no psych history - Social History Smoking Status: Current every day smoker Smokeless Tobacco Status: No Alcohol use: Reports: none Drug use: Reports: none Course Vital Signs Temperature 97.5 F L 05/17/19 02:23 Pulse Rate 65 05/17/19 02:23 Respiratory Rate 20 05/17/19 02:23 Blood Pressure 142/100 05/17/19 02:23 O2 Sat by Pulse Oximetry 99 05/17/19 02:23 Temperature 97.5 F L 05/17/19 02:23 Pulse Rate 56 05/17/19 05:24 Respiratory Rate 20 05/17/19 05:24 Blood Pressure 118/93 05/17/19 05:24 O2 Sat by Pulse Oximetry 100 05/17/19 05:24 Oxygen Delivery Oxygen Delivery Room Air Medical Decision Making - Lab Data Result diagrams: 05/17/19 02:45 05/17/19 02:45 Lab Results 05/17/19 05/17/19 05/17/19 Range/Units 02:45 02:45 02:45 WBC 8.2 (4.3-11.1) K/mcL RBC 5.40 (4.19-5.50) M/mcL Hgb 16.2 (12.9-16.9) g/dL Hct 47.5 (37.5-50.1) % MCV 88.0 (83.0-100.0) fL MCH 30.0 (28.0-33.3) pg MCHC 34.1 (31.6-35.5) g/dL RDW 12.4 (11.5-14.5) % Plt Count 224 (140-400) K/mcL MPV 9.7 (9.4-12.4) fL Immature Gran % 0.2 (0-4) % Seg Neutrophils % 63.6 % Lymphocytes % 29.6 % Monocytes % 4.4 % Eosinophils % 1.5 % Basophils % 0.7 % Neutrophils # 5.2 (1.6-8.9) K/mcL Lymphocytes # 2.4 (0.6-4.6) K/mcL Monocytes # 0.4 (0.0-1.3) K/mcL Eosinophils # 0.1 (0.0-0.6) K/mcL Basophils # 0.1 (0.0-0.2) K/mcL Sodium 146 H (136-145) mEq/L Potassium 3.9 (3.5-5.1) mEq/L Chloride 104 (98-107) mEq/L Carbon Dioxide 30 H (23-29) mEq/L BUN 15 (6-20) mg/dL Creatinine 1.15 (0.70-1.30) mg/dL Est GFR ( Amer) > 60 (> 60) Est GFR (Non-Af Amer) > 60 (> 60) BUN/Creatinine Ratio 13 (6-26) Glucose 95 (70-105) mg/dL Calculated Osmolality 303 H (280-300) Lactic Acid 1.4 (0.5-2.2) mmol/L Calcium 10.3 (8.6-10.3) mg/dL Magnesium 2.3 (1.6-2.6) mg/dL Total Bilirubin 0.4 (0.3-1.0) mg/dL AST 22 (13-39) Units/L ALT 26 (7-52) Units/L Alkaline Phosphatase 76 (34-104) Units/L Creatine Kinase 54 (30-223) Units/L Troponin I < 0.03 (< 0.04) ng/mL Serum Total Protein 7.7 (6.4-8.9) g/dL Albumin 4.8 (3.5-5.7) g/dL Globulin 2.9 (2.4-3.5) g/dL Albumin/Globulin Ratio 1.7 (1.1-2.2) Lipase 23 (11-82) Units/L TSH 7.006 H (0.340-5.600) mcIU/mL Free T4 0.94 (0.70-2.00) ng/dl Urine Color (Yellow) Urine Clarity (Clear) Urine pH (5.0-8.0) pH Units Ur Specific [place] (1.010-1.025) Urine Protein (Neg-Trace) mg/dL Urine Glucose (UA) (Normal) mg/dL Urine Ketones (Negative) mg/dL Urine Blood (Negative) Urine Nitrite (Negative) Urine Bilirubin (Negative) Urine Urobilinogen (Normal) mg/dL Ur Leukocyte Esterase (Negative) Urine Opiates Screen (Chumrn=356) ng/mL Ur Buprenorphine Scrn (Cutoff=5) ng/mL Ur Barbiturates Screen (Fkqfgm=956) ng/mL Ur Phencyclidine Scrn (Cutoff=25) ng/mL Ur Amphetamines Screen (Rghsbm=3706) ng/mL U Benzodiazepines Scrn (Yjloed=204) ng/mL Urine Cocaine Screen (Cutoff= 300) ng/mL U Marijuana (THC) Screen (Cutoff = 50) ng/mL Ur Drug Screen Interp 05/17/19 05/17/19 Range/Units 04:29 04:29 WBC (4.3-11.1) K/mcL RBC (4.19-5.50) M/mcL Hgb (12.9-16.9) g/dL Hct (37.5-50.1) % MCV (83.0-100.0) fL MCH (28.0-33.3) pg MCHC (31.6-35.5) g/dL RDW (11.5-14.5) % Plt Count (140-400) K/mcL MPV (9.4-12.4) fL Immature Gran % (0-4) % Seg Neutrophils % % Lymphocytes % % Monocytes % % Eosinophils % % Basophils % % Neutrophils # (1.6-8.9) K/mcL Lymphocytes # (0.6-4.6) K/mcL Monocytes # (0.0-1.3) K/mcL Eosinophils # (0.0-0.6) K/mcL Basophils # (0.0-0.2) K/mcL Sodium (136-145) mEq/L Potassium (3.5-5.1) mEq/L Chloride (98-107) mEq/L Carbon Dioxide (23-29) mEq/L BUN (6-20) mg/dL Creatinine (0.70-1.30) mg/dL Est GFR ( Amer) (> 60) Est GFR (Non-Af Amer) (> 60) BUN/Creatinine Ratio (6-26) Glucose (70-105) mg/dL Calculated Osmolality (280-300) Lactic Acid (0.5-2.2) mmol/L Calcium (8.6-10.3) mg/dL Magnesium (1.6-2.6) mg/dL Total Bilirubin (0.3-1.0) mg/dL AST (13-39) Units/L ALT (7-52) Units/L Alkaline Phosphatase (34-104) Units/L Creatine Kinase (30-223) Units/L Troponin I (< 0.04) ng/mL Serum Total Protein (6.4-8.9) g/dL Albumin (3.5-5.7) g/dL Globulin (2.4-3.5) g/dL Albumin/Globulin Ratio (1.1-2.2) Lipase (11-82) Units/L TSH (0.340-5.600) mcIU/mL Free T4 (0.70-2.00) ng/dl Urine Color Yellow (Yellow) Urine Clarity Clear (Clear) Urine pH 7.0 (5.0-8.0) pH Units Ur Specific [place] 1.022 (1.010-1.025) Urine Protein Negative (Neg-Trace) mg/dL Urine Glucose (UA) Normal (Normal) mg/dL Urine Ketones Negative (Negative) mg/dL Urine Blood Negative (Negative) Urine Nitrite Negative (Negative) Urine Bilirubin Negative (Negative) Urine Urobilinogen Normal (Normal) mg/dL Ur Leukocyte Esterase Negative (Negative) Urine Opiates Screen Negative (Ndnjoy=061) ng/mL Ur Buprenorphine Scrn Positive H (Cutoff=5) ng/mL Ur Barbiturates Screen Negative (Lzgtxc=959) ng/mL Ur Phencyclidine Scrn Negative (Cutoff=25) ng/mL Ur Amphetamines Screen Negative (Hsiewc=6580) ng/mL U Benzodiazepines Scrn Negative (Rttpqm=821) ng/mL Urine Cocaine Screen Negative (Cutoff= 300) ng/mL U Marijuana (THC) Screen Positive H (Cutoff = 50) ng/mL Ur Drug Screen Interp See Below Attestation Statement - Attestation Attestation: I reviewed the residents documentation and agree with the residents assessment and plan of care. I have personally had face to face time with the patient. (Brief History, Brief Exam, and MDM) I personally supervised and was present for the calvert/critical portions of the following procedures completed by the resident: (add procedures performed here). [id number] time provided Patient arrives by private vehicle complaining of nausea and vomiting. He exper ienced similar symptoms several weeks ago prompting admission for dehydration and a cardiac catheterization without extent appointment. He is sitting in a wheelchair and retching upon arrival
[2019-05-17] MEDS ORDERED: Ondansetron 4 MG/2 ML VIAL IVP ONE (02:18)
--- NOTE | 2019-05-17 02:25 | Emergency Department Note ---
Disposition Clinical Impression: Chest pain Qualifiers: Chest pain type: other chest pain Qualified Code(s): R07.89 - Other chest pain; R07.8 - Other chest pain A-fib Qualifiers: Atrial fibrillation type: unspecified Qualified Code(s): I48.91 - Unspecified atrial fibrillation Disposition: Admitted As Inpatient Condition: Good Time of Disposition: 05:40 General Adult HPI - General Stated complaint: vomit, shake, sweats Time Seen by Provider: 05/17/19 02:03 Source: patient Mode of arrival: ambulatory Limitations: no limitations Nursing Notes Reviewed: Yes Vital Signs Reviewed: Yes - History of Present Illness HPI Narrative: Male patient presenting to emergency department complaining of myalgias. Also a tightness sensation in his chest. Denies any shortness breath. States that he feels similar is 20 was here before. He had been here before and was diagnosed with "heat exhaustion." States he did have a cardiac catheterization at that time that was negative for any stenosis. No stents were deployed. He describes the chest pain that is a squeezing sensation to his chest. Is been going on throughout the day. Does have associated nausea with some bilious vomiting. A lso diaphoretic. He states he has not been outside recently as he was concerned of the last time when he had heat exhaustion. - Related Data Home Medications Medication Instructions Recorded Confirmed Buprenorphine HCl/Naloxone HCl 1 each SL BID 04/28/19 04/28/19 [Suboxone 8 mg-2 mg Sl Film] Allergies Allergy/AdvReac Type Severity Reaction Status Date / Time No Known Allergies Allergy Verified 02/09/18 09:29 All systems ED: reviewed and negative except as stated. Review of Systems: As Per HPI Constitutional: Denies: fever, chills ENT ED: Denies: congestion Cardiovascular: Reports: chest pain Respiratory: Denies: cough, dyspnea Gastrointestinal: Reports: nausea, vomiting. Denies: abdominal pain, diarrhea, hematemesis, melena, hematochezia Genitourinary: Denies: urgency, dysuria, frequency, hematuria Musculoskeletal: Reports: myalgia Endocrine: Reports: fatigue Past Medical History - Past Medical History Attestation: Yes The following information was validated with the patient. Source: patient Medical history: Reports: GERD, hepatitis, other Surgical history: Reports: no surgical history Psychiatric history: Reports: no psych history - Social History Smoking Status: Current every day smoker Smokeless Tobacco Status: No Alcohol use: Reports: none Drug use: Reports: none Physical Exam - General Limitations: no limitations General appearance: alert, in no apparent distress - Head Head exam: atraumatic, normocephalic, normal inspection - Eye Eye exam: Present: normal appearance, PERRL, EOMI - ENT ENT exam: normal exam, normal oropharynx, mucous membranes moist - Neck Neck exam: Present: normal inspection, full ROM, trachea midline - Chest Chest inspection: Present: normal inspection, symmetric chest wall rise - Respiratory Respiratory exam: Present: wheezes. Absent: respiratory distress, accessory muscle use - Cardiovascular Cardiovascular exam: Present: regular rate, normal rhythm, normal heart sounds - Abdominal Exam Abdominal exam: Present: soft, Non-Tender. Absent: tenderness, distention, guarding, rebound, rigidity, organomegaly, Juárez's sign, Rovsing's sign, tenderness at McBurney's Point - Extremities Exam Extremities exam: Present: normal inspection, full ROM, normal capillary refill, other (All compartments are soft. Not taut. Reports myalgias throughout on inspection without any muscular distention or contractions noted.). Absent: tenderness, pedal edema, calf tenderness - Back Exam Back exam: Present: normal inspection, full ROM. Absent: tenderness - Neurological Exam Neurological exam: Present: alert, oriented X3 - Psychiatric Psychiatric exam: Present: normal affect, normal mood - Skin Skin exam: Present: warm, dry, intact, normal color. Absent: rash, cyanosis, diaphoresis Course Course Narrative: Patient appears well resting in bed. He was diaphoretic per the nursing staff earlier however he is not on my exam. He does have some wheezing throughout. He is a smoker. Heart tones are normal. Abdomen is soft nontender. He does describe some nausea and has been vomiting. Patient is reporting myalgias all over his body. However on inspection there are no tense muscle compartments noted. He was previously here for similar symptoms and was diagnosed with dehydration. We will get basic lab workup on patient as well as a CK and provide patient with fluids and anti-emetics at this time. Again patient's abdomen is soft nontender nondistended on exam. - Reevaluation(s) Reevaluation #1: Patient in A. fib. His rate of 103. Chest tightness. We will add a TSH level as well as a urine drug screen. Patient also bradys down to the 50s. Patient's TSH did come back elevated. He again denies any other drug use. States that he still has a funny feeling in his chest. We will be admitting the patient to the hospital at this time. - Consultations Consultation #1: Dr Mazariegos accepted patient in stable condition. He did request that we start patient on heparin due to his new onset A. fib. I have placed this order. Time: 05:38 Vital Signs Temperature 97.5 F L 05/17/19 02:23 Pulse Rate 65 05/17/19 02:23 Respiratory Rate 20 05/17/19 02:23 Blood Pressure 142/100 05/17/19 02:23 O2 Sat by Pulse Oximetry 99 05/17/19 02:23 Temperature 97.5 F L 05/17/19 02:23 Pulse Rate 56 05/17/19 05:24 Respiratory Rate 20 05/17/19 05:24 Blood Pressure 118/93 05/17/19 05:24 O2 Sat by Pulse Oximetry 100 05/17/19 05:24 Oxygen Delivery Oxygen Delivery Room Air Medical Decision Making - Medical Records Medical records reviewed: Yes I reviewed the patient's medical records. - Lab Data Lab results reviewed: Yes I reviewed the patient's lab results. Result diagrams: 05/17/19 02:45 05/17/19 02:45 Lab Results 05/17/19 05/17/19 05/17/19 Range/Units 02:45 02:45 02:45 WBC 8.2 (4.3-11.1) K/mcL RBC 5.40 (4.19-5.50) M/mcL Hgb 16.2 (12.9-16.9) g/dL Hct 47.5 (37.5-50.1) % MCV 88.0 (83.0-100.0) fL MCH 30.0 (28.0-33.3) pg MCHC 34.1 (31.6-35.5) g/dL RDW 12.4 (11.5-14.5) % Plt Count 224 (140-400) K/mcL MPV 9.7 (9.4-12.4) fL Immature Gran % 0.2 (0-4) % Seg Neutrophils % 63.6 % Lymphocytes % 29.6 % Monocytes % 4.4 % Eosinophils % 1.5 % Basophils % 0.7 % Neutrophils # 5.2 (1.6-8.9) K/mcL Lymphocytes # 2.4 (0.6-4.6) K/mcL Monocytes # 0.4 (0.0-1.3) K/mcL Eosinophils # 0.1 (0.0-0.6) K/mcL Basophils # 0.1 (0.0-0.2) K/mcL Sodium 146 H (136-145) mEq/L Potassium 3.9 (3.5-5.1) mEq/L Chloride 104 (98-107) mEq/L Carbon Dioxide 30 H (23-29) mEq/L BUN 15 (6-20) mg/dL Creatinine 1.15 (0.70-1.30) mg/dL Est GFR ( Amer) > 60 (> 60) Est GFR (Non-Af Amer) > 60 (> 60) BUN/Creatinine Ratio 13 (6-26) Glucose 95 (70-105) mg/dL Calculated Osmolality 303 H (280-300) Lactic Acid 1.4 (0.5-2.2) mmol/L Calcium 10.3 (8.6-10.3) mg/dL Magnesium 2.3 (1.6-2.6) mg/dL Total Bilirubin 0.4 (0.3-1.0) mg/dL AST 22 (13-39) Units/L ALT 26 (7-52) Units/L Alkaline Phosphatase 76 (34-104) Units/L Creatine Kinase 54 (30-223) Units/L Troponin I < 0.03 (< 0.04) ng/mL Serum Total Protein 7.7 (6.4-8.9) g/dL Albumin 4.8 (3.5-5.7) g/dL Globulin 2.9 (2.4-3.5) g/dL Albumin/Globulin Ratio 1.7 (1.1-2.2) Lipase 23 (11-82) Units/L TSH 7.006 H (0.340-5.600) mcIU/mL Free T4 0.94 (0.70-2.00) ng/dl Urine Color (Yellow) Urine Clarity (Clear) Urine pH (5.0-8.0) pH Units Ur Specific [place] (1.010-1.025) Urine Protein (Neg-Trace) mg/dL Urine Glucose (UA) (Normal) mg/dL Urine Ketones (Negative) mg/dL Urine Blood (Negative) Urine Nitrite (Negative) Urine Bilirubin (Negative) Urine Urobilinogen (Normal) mg/dL Ur Leukocyte Esterase (Negative) Urine Opiates Screen (Qpeipl=879) ng/mL Ur Buprenorphine Scrn (Cutoff=5) ng/mL Ur Barbiturates Screen (Rtlpzw=772) ng/mL Ur Phencyclidine Scrn (Cutoff=25) ng/mL Ur Amphetamines Screen (Eiqtht=7567) ng/mL U Benzodiazepines Scrn (Uytrpv=320) ng/mL Urine Cocaine Screen (Cutoff= 300) ng/mL U Marijuana (THC) Screen (Cutoff = 50) ng/mL Ur Drug Screen Interp 05/17/19 05/17/19 Range/Units 04:29 04:29 WBC (4.3-11.1) K/mcL RBC (4.19-5.50) M/mcL Hgb (12.9-16.9) g/dL Hct (37.5-50.1) % MCV (83.0-100.0) fL MCH (28.0-33.3) pg MCHC (31.6-35.5) g/dL RDW (11.5-14.5) % Plt Count (140-400) K/mcL MPV (9.4-12.4) fL Immature Gran % (0-4) % Seg Neutrophils % % Lymphocytes % % Monocytes % % Eosinophils % % Basophils % % Neutrophils # (1.6-8.9) K/mcL Lymphocytes # (0.6-4.6) K/mcL Monocytes # (0.0-1.3) K/mcL Eosinophils # (0.0-0.6) K/mcL Basophils # (0.0-0.2) K/mcL Sodium (136-145) mEq/L Potassium (3.5-5.1) mEq/L Chloride (98-107) mEq/L Carbon Dioxide (23-29) mEq/L BUN (6-20) mg/dL Creatinine (0.70-1.30) mg/dL Est GFR ( Amer) (> 60) Est GFR (Non-Af Amer) (> 60) BUN/Creatinine Ratio (6-26) Glucose (70-105) mg/dL Calculated Osmolality (280-300) Lactic Acid (0.5-2.2) mmol/L Calcium (8.6-10.3) mg/dL Magnesium (1.6-2.6) mg/dL Total Bilirubin (0.3-1.0) mg/dL AST (13-39) Units/L ALT (7-52) Units/L Alkaline Phosphatase (34-104) Units/L Creatine Kinase (30-223) Units/L Troponin I (< 0.04) ng/mL Serum Total Protein (6.4-8.9) g/dL Albumin (3.5-5.7) g/dL Globulin (2.4-3.5) g/dL Albumin/Globulin Ratio (1.1-2.2) Lipase (11-82) Units/L TSH (0.340-5.600) mcIU/mL Free T4 (0.70-2.00) ng/dl Urine Color Yellow (Yellow) Urine Clarity Clear (Clear) Urine pH 7.0 (5.0-8.0) pH Units Ur Specific [place] 1.022 (1.010-1.025) Urine Protein Negative (Neg-Trace) mg/dL Urine Glucose (UA) Normal (Normal) mg/dL Urine Ketones Negative (Negative) mg/dL Urine Blood Negative (Negative) Urine Nitrite Negative (Negative) Urine Bilirubin Negative (Negative) Urine Urobilinogen Normal (Normal) mg/dL Ur Leukocyte Esterase Negative (Negative) Urine Opiates Screen Negative (Hdmmkm=176) ng/mL Ur Buprenorphine Scrn Positive H (Cutoff=5) ng/mL Ur Barbiturates Screen Negative (Hoxrls=496) ng/mL Ur Phencyclidine Scrn Negative (Cutoff=25) ng/mL Ur Amphetamines Screen Negative (Tuzdpd=5243) ng/mL U Benzodiazepines Scrn Negative (Vswemg=560) ng/mL Urine Cocaine Screen Negative (Cutoff= 300) ng/mL U Marijuana (THC) Screen Positive H (Cutoff = 50) ng/mL Ur Drug Screen Interp See Below - Radiology Data Radiology results reviewed: Yes I reviewed the patient's radiology results. Chest X-Ray 05/17/19 02:38 IMPRESSION: No evidence of acute process. D/ / Domingo Uriarte / Domingo Uriarte Interpreting Provider: Domingo Uriarte - EKG Data EKG #1 EKG attestation: Yes I reviewed and interpreted this EKG. EKG results narrative: A. fib at a rate of 13. CT interval was not measured. QRS duration is 101. QT is 379. QTC is 522. No signs of acute ischemia. Good R-wave progression. No signs of WPW or Brugada. Patient was in a normal sinus rhythm on previous EKG dated 04/28/2019.
[2019-05-17] MEDS ORDERED: Ipratropium/Albuterol Neb 3 ML IH ONE (02:30)
[2019-05-17 02:59] LABS: Basophils # 0.1 K/mcL (0.0-0.2); Basophils % 0.7 %; Eosinophils # 0.1 K/mcL (0.0-0.6); Eosinophils % 1.5 %; Hematocrit 47.5 % (37.5-50.1); Hemoglobin 16.2 g/dL (12.9-16.9); Immature Granulocytes % 0.2 % (0-4); Lymphocytes # 2.4 K/mcL (0.6-4.6); Lymphocytes % 29.6 %; Mean Corpuscular HGB Conc 34.1 g/dL (31.6-35.5); Mean Platelet Volume 9.7 fL (9.4-12.4); Monocytes # 0.4 K/mcL (0.0-1.3); Monocytes % 4.4 %; Neutrophils # 5.2 K/mcL (1.6-8.9); Platelet Count 224 K/mcL (140-400); Red Cell Distribution Width 12.4 % (11.5-14.5); Segmented Neutrophils % 63.6 %; White Blood Count 8.2 K/mcL (4.3-11.1)
[2019-05-17] MEDS: 0.9 % Sodium Chloride 1,000 ML IVC ONE ×2 (02:59→04:14)
[2019-05-17 03:21] LABS: Alanine Aminotransferase 26 Units/L (7-52); Albumin 4.8 g/dL (3.5-5.7); Albumin/Globulin Ratio 1.7 (1.1-2.2); Alkaline Phosphatase 76 Units/L (34-104); Aspartate Amino Transferase 22 Units/L (13-39); BUN/Creatinine Ratio 13 (6-26); Bilirubin,Total 0.4 mg/dL (0.3-1.0); Blood Urea Nitrogen 15 mg/dL (6-20); Calcium 10.3 mg/dL (8.6-10.3); Carbon Dioxide 30 mEq/L (23-29); Chloride 104 mEq/L (98-107); Globulin 2.9 g/dL (2.4-3.5); Glucose 95 mg/dL (70-105); Lipase 23 Units/L (11-82); Magnesium 2.3 mg/dL (1.6-2.6); Osmolality,Calculated 303 (280-300); Potassium 3.9 mEq/L (3.5-5.1); Sodium 146 mEq/L (136-145); Total Protein 7.7 g/dL (6.4-8.9); eGFR For African Americans > 60 (> 60); eGFR For Non-African Americans > 60 (> 60)
[2019-05-17 03:32] LABS: Creatine Kinase 54 Units/L (30-223)
[2019-05-17] MEDS ORDERED: Aspirin 81 MG TAB.CHEW PO STA (03:59)
[2019-05-17] MEDS ORDERED: 0.9 % Sodium Chloride 1,000 ML ONE ×2 (04:08→07:24)
[2019-05-17 04:34] LABS: Bilirubin,Urine Negative (Negative); Blood,Urine Negative (Negative); Clarity,Urine Clear (Clear); Color,Urine Yellow (Yellow); Glucose,Urine (UA) Normal (Normal); Ketones,Urine Negative (Negative); Leukocyte Esterase,Urine Negative (Negative); Nitrite,Urine Negative (Negative); Protein,Urine Negative (Neg-Trace); Specific Gravity,Urine 1.022 (1.010-1.025); Urobilinogen,Urine Normal (Normal)
[2019-05-17 04:49] LABS: Amphetamine Screen,Urine Negative ng/mL (Cutoff=1000); Barbiturate Screen,Urine Negative ng/mL (Cutoff=200); Benzodiazepines Screen,Urine Negative ng/mL (Cutoff=200); Cannabinoid Screen,Urine Positive ng/mL (Cutoff = 50); Cocaine Screen,Urine Negative ng/mL (Cutoff= 300); Opiate Screen,Urine Negative ng/mL (Cutoff=300); Phencyclidine Screen,Urine Negative ng/mL (Cutoff=25)
[2019-05-17 04:50] LABS: Troponin I < 0.03 ng/mL (< 0.04)
[2019-05-17 05:04] LABS: Thyroid Stimulating Hormone 7.006 mcIU/mL (0.340-5.600)
[2019-05-17] MEDS ORDERED: *HR* Heparin 5,000 UNIT/ML VIAL IVP PRN ×2 (05:37)
[2019-05-17] MEDS ORDERED: *HR* Heparin 5,000 UNIT/ML VIAL IVP ONE (05:37)
[2019-05-17] MEDS ORDERED: Heparin 25,000 UNIT/250 ML D5W 25,000 UNIT/250 ML IV.SOLN IVC SCH (05:45)
[2019-05-17] MEDS ORDERED: Ondansetron 4 MG/2 ML VIAL IVP PRN (08:05)
[2019-05-17] MEDS ORDERED: traMADol 50 MG TABLET PO PRN (08:05)
[2019-05-17] MEDS ORDERED: Naloxone 0.4 MG/ML INJ IVP PRN (08:05)
[2019-05-17] MEDS ORDERED: D5% in Water 1,000 ML IVC PRN (08:07)
[2019-05-17] MEDS ORDERED: Dextrose Gel 15 GM/37.5 ML TUBE PO PRN ×2 (08:07)
[2019-05-17] MEDS ORDERED: *HR* Dextrose 50 % in Water (Syg) 50 ML SYRINGE IVP PRN (08:07)
[2019-05-17 08:32] LABS: Hematocrit 45.2 % (37.5-50.1); Hemoglobin 15.6 g/dL (12.9-16.9); Mean Corpuscular HGB Conc 34.5 g/dL (31.6-35.5); Mean Corpuscular Hemoglobin 30.4 pg (28.0-33.3); Mean Corpuscular Volume 88.1 fL (83.0-100.0); Mean Platelet Volume 9.9 fL (9.4-12.4); Platelet Count 209 K/mcL (140-400); Red Blood Count 5.13 M/mcL (4.19-5.50); Red Cell Distribution Width 12.2 % (11.5-14.5); White Blood Count 7.4 K/mcL (4.3-11.1)
[2019-05-17 08:40] LABS: Heparin anti-factor XA UFH 0.32 IU/mL (0.30-0.70)
[2019-05-17 08:41] LABS: INR 0.9; Prothrombin Time 10.6 Seconds (9.4-12.1)
[2019-05-17] MEDS ORDERED: Metoprolol XL (24 HR) Succ 25 MG TAB.ER.24H PO SCH (09:30)
[2019-05-17] MEDS ORDERED: Isovue-370 500 ML BOTTLE IVP ONE (09:45)
--- NOTE | 2019-05-17 09:47 | Internal Med History&Physical ---
Date of Encounter: 05/17/19 Time of Encounter: 09:40 Internal Medicine - H&P: HPI Chief complaint: Palpitations, nausea and vomiting Admitted From: Home Plans for Post Hospital Care: Home History of present illness: Mr. Cha is a 39 year old male PMH of former IVDU, Hep C. Patient presented to the ED due to nausea and vomiting associated with diaphoresis and palpitations of 1 day duration. Patient admits smoking marijuana every other day due to headache. Started that last night at around 1am he started feeling nauseated and started having vomiting bilious material. Reported he had thrown up too many time to count. Reported diaphoresis, palpitations and chest tight associated with the nausea and vomiting. Reports abdominal discomfort but denies pain. In the ED patient was found to be on A.fib with RvR. Admitted to the hospitalist team for management. Past Med Surg Social Fam HX - Past Medical History Medical history: GERD, hepatitis, other Additional medical history: hepatitis C Psychiatric history: no psych history - Past Surgical History Surgical History: no surgical history Additional surgical history: Liver biopsy - Social History Smoking Status: Current every day smoker Smokeless Tobacco Status: No Alcohol use: none Drug use: marijuana Internal Medicine - H&P: Meds Buprenorphine HCl/Naloxone HCl [Suboxone 8 mg-2 mg Sl Film] 1 each SL BID 04/28/19 [History] Allergy/AdvReac Type Severity Reaction Status Date / Time No Known Allergies Allergy Verified 02/09/18 09:29 All Systems PM: A 10-system review of systems was performed and is negative for pertinent findings except as documented above in the HPI. - Constitutional Constitutional: malaise, weakness, no chills - EENT Eyes: no irritation Nose, mouth and throat: no dry mouth - Cardiovascular Cardiovascular ROS IM: irregular heart rhythm, palpitations, no chest pain, no dyspnea on exertion, no lightheadedness - Respiratory Respiratory: no cough, no wheezing - Gastrointestinal Gastrointestinal: nausea, vomiting, no abdominal pain - Genitourinary Genitourinary ROS male: no dysuria, no urinary frequency, no urinary incontinence, no urinary urgency - Musculoskeletal Musculoskeletal ROS IM: no back pain - Integumentary Integumentary IM: no erythema, no non-healing lesions - Neurological Neurological ROS: no headache(s) - Psychiatric Psychiatric: no anxiety, no hopelessness, no irritability - Endocrine Endocrine IM: no cold intolerance, no excessive sweating - Hematologic/Lymphatic Hematologic/Lymphatic: no lymphadenopathy - Allergic/Immunologic Allergic/Immunologic: no GI upset with certain foods - Constitutional Vitals: Temp Pulse Resp BP Pulse Ox 97.8 F 104 16 106/66 99 05/17/19 08:03 05/17/19 08:03 05/17/19 08:03 05/17/19 08:03 05/17/19 08:03 Exam: Vitals: Reviewed General: Alert and oriented x4. In mild distress due to nausea and palpitations Cardiovascular: Irregularly irregular, normal S1 & S2, no rubs, murmurs or gallops. Lungs: CTA b/l, no wheezes or crackles. Abdomen: Soft, non-tender, no rigidity. Extremities: No edema Neurological: Normal cognition and motor skills. Rest of the physical exam is non contributory Internal Med - H&P Results - Labs CBC & Chem 7: 05/17/19 08:18 05/17/19 02:45 Labs: Short CBC 05/17/19 05/17/19 Range/Units 02:45 08:18 WBC 8.2 7.4 (4.3-11.1) K/mcL Hgb 16.2 15.6 (12.9-16.9) g/dL Hct 47.5 45.2 (37.5-50.1) % Plt Count 224 209 (140-400) K/mcL Neutrophils # 5.2 (1.6-8.9) K/mcL BMP 05/17/19 02:45 Sodium 146 H Potassium 3.9 Chloride 104 Carbon Dioxide 30 H BUN 15 Creatinine 1.15 Glucose 95 Calcium 10.3 Cardiac Enzymes 05/17/19 05/17/19 Range/Units 02:45 08:15 Troponin I < 0.03 < 0.03 (< 0.04) ng/mL Liver Function 05/17/19 Range/Units 02:45 Total Bilirubin 0.4 (0.3-1.0) mg/dL AST 22 (13-39) Units/L ALT 26 (7-52) Units/L Alkaline Phosphatase 76 (34-104) Units/L Albumin 4.8 (3.5-5.7) g/dL Urine 05/17/19 Range/Units 04:29 Urine Color Yellow (Yellow) Urine Clarity Clear (Clear) Urine pH 7.0 (5.0-8.0) pH Units Ur Specific [place] 1.022 (1.010-1.025) Urine Protein Negative (Neg-Trace) mg/dL Urine Glucose (UA) Normal (Normal) mg/dL - Impressions ITS Impressions Chest X-Ray 05/17/19 02:38 IMPRESSION: No evidence of acute process. D/ / Domingo Uriarte / Domingo Uriarte Interpreting Provider: Domingo Uriarte - Diagnostic Studies Chest x-ray Status: image reviewed by me (No acute findings ) - Assessment and Plan (1) Nausea & vomiting Current Visit: Yes Status: Acute Assessment and plan: patient reported too many to count episodes of nausea and vomiting. Plan - bowel rest, NPO - started on D5NS@100ml/hr - PPIs and anti-emetics - KUB ordered Qualifiers: Vomiting type: bilious vomiting Qualified Code(s): R11.14 - Bilious vomiting (2) A-fib Current Visit: Yes Status: Acute Assessment and plan: patient reporting palpitations, found to be on A.fib with RvR. CHADS-VASc Score: 0 Plan - patient started on a BB - patient with an extensive cardiac work up less than a month ago which was unremarkable - CTA of the chest ordered to r/o PE as a possible cause of the new onset A.fib - will hold anti-coagulation as low CHADS-VACS score. - aspirin 81mg/PO daily added Qualifiers: Atrial fibrillation type: paroxysmal Qualified Code(s): I48.0 - Paroxysmal atrial fibrillation (3) DVT prophylaxis Current Visit: Yes Status: Acute Assessment and plan: started on heparin subq - Time Spent With Patient Total time spent is greater than 50% in coordination of care (as documented) at patient's floor/unit and/or counseling patient: Greater than 35 minutes (50)
[2019-05-17] MEDS ORDERED: Apixaban 5 MG TABLET PO SCH (11:00)
[2019-05-17] MEDS: *HR* Buprenorphine HCl 8 MG TAB.SUBL SL SCH ×2 (15:38→20:03)
[2019-05-17] MEDS: *HR* Heparin 5,000 UNIT/ML VIAL SQ SCH ×2 (15:46→22:23)
[2019-05-17] MEDS: Pantoprazole 40 MG VIAL IVP SCH (15:46)
[2019-05-17] MEDS: D5% in 0.45% NACL 1,000 ML IVC SCH (16:07)
[2019-05-17] MEDS: Insulin LISPRO 300 UNITS/3 ML VIAL SQ SCH ×2 (16:08→18:33)
--- NOTE | 2019-05-17 16:46 | Electrocardiograph Report ---
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
[2019-05-18] MEDS: Insulin LISPRO 300 UNITS/3 ML VIAL SQ SCH ×2 (00:46→06:43)
[2019-05-18 04:40] LABS: Basophils % 0.4 %; Eosinophils # 0.1 K/mcL (0.0-0.6); Eosinophils % 2.3 %; Hematocrit 39.4 % (37.5-50.1); Hemoglobin 13.3 g/dL (12.9-16.9); Immature Granulocytes % 0.2 % (0-4); Lymphocytes # 1.9 K/mcL (0.6-4.6); Lymphocytes % 39.9 %; Mean Corpuscular HGB Conc 33.8 g/dL (31.6-35.5); Mean Corpuscular Hemoglobin 29.9 pg (28.0-33.3); Mean Corpuscular Volume 88.5 fL (83.0-100.0); Mean Platelet Volume 10.2 fL (9.4-12.4); Monocytes # 0.2 K/mcL (0.0-1.3); Neutrophils # 2.5 K/mcL (1.6-8.9); Platelet Count 191 K/mcL (140-400); Red Blood Count 4.45 M/mcL (4.19-5.50); Red Cell Distribution Width 12.4 % (11.5-14.5); Segmented Neutrophils % 52.2 %; White Blood Count 4.8 K/mcL (4.3-11.1)
[2019-05-18 04:58] LABS: BUN/Creatinine Ratio 11 (6-26); Blood Urea Nitrogen 9 mg/dL (6-20); Calcium 8.9 mg/dL (8.6-10.3); Carbon Dioxide 28 mEq/L (23-29); Chloride 107 mEq/L (98-107); Glucose 95 mg/dL (70-105); Osmolality,Calculated 292 (280-300); Potassium 3.8 mEq/L (3.5-5.1); Sodium 142 mEq/L (136-145); eGFR For African Americans > 60 (> 60); eGFR For Non-African Americans > 60 (> 60)
[2019-05-18] MEDS: *HR* Heparin 5,000 UNIT/ML VIAL SQ SCH (05:07)
[2019-05-18] MEDS: D5% in 0.45% NACL 1,000 ML IVC SCH (05:09)
[2019-05-18 07:44] VITALS: BP 127/77
[2019-05-18] MEDS ORDERED: Aspirin Enteric Coated 81 MG Tablet PO SCH (09:00)
[2019-05-18] MEDS ORDERED: Diltiazem CD (24hr) 120 MG CAPSULE PO SCH (09:15)
[2019-05-18] MEDS: Pantoprazole 40 MG VIAL IVP SCH (09:27)
[2019-05-18] MEDS: *HR* Buprenorphine HCl 8 MG TAB.SUBL SL SCH (09:27)
--- NOTE | 2019-05-18 10:40 | Discharge Summary ---
- NOTES TO OUTPATIENT PROVIDER Notes to Outpatient Provider: f/u with PCP in one week. f/u with Cardiology in 1-2 weeks. Please take Cardizem 30mg BID as needed for tachycardia. Please quit smoking Date of Encounter: 05/18/19 Time of Encounter: 10:22 - Discharge Diagnosis (1) A-fib Priority: Primary Status: Acute Qualifiers: Atrial fibrillation type: paroxysmal Qualified Code(s): I48.0 - Paroxysmal atrial fibrillation (2) Nausea & vomiting Priority: Primary Status: Acute Qualifiers: Vomiting type: bilious vomiting Qualified Code(s): R11.14 - Bilious vomiting (3) DVT prophylaxis Priority: Secondary Status: Acute (4) Tobacco dependence Priority: Secondary Status: Chronic (5) Substance abuse Priority: Secondary Status: Chronic Hospital course: Mr. Cha is a 39 year old male with PMH of former IVDU, Hep C. Patient presented to the ED due to nausea and vomiting associated with diaphoresis and palpitations of 1 day duration. He was recently admitted here for STEMI and went for LHC which came back as normal CAD. In the ER he happened to have Afib with RVR. 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 He was given IV hydration and symptomatic care for his nausea and vomiting. Patient got converted to normal sinus rhythm last night. Now his heart rate stayed in low 50s. His CHADSVASC score 0, so recommend to take Aspirin 81mg daily. Also recommended to quit smoking tobacco and Marijuana. Gave him rx for Cardizem 30mg BID to take as needed if his HR ever goes up to 90's and he gets palpitations. - Time Spent with Patient Total time spent providing and/or coordinating discharge services: - Discharge Medications Prescriptions: New Aspirin Enteric Coated [Aspirin EC] 81 mg PO DAILY #30 tablet.dr Petersontiazem [Cardizem] 30 mg PO Q12HR PRN #30 tablet PRN Reason: Heart Rate- High Nicotine Patch [Nicoderm] 21 mg TD DAILY #30 patch.td24 Continued Buprenorphine HCl/Naloxone HCl [Suboxone 8 mg-2 mg Sl Film] 1 each SL BID Home Medications: Buprenorphine HCl/Naloxone HCl [Suboxone 8 mg-2 mg Sl Film] 1 each SL BID 04/28/19 [History] Aspirin Enteric Coated [Aspirin EC] 81 mg PO DAILY #30 tablet. 05/18/19 [Rx] Diltiazem [Cardizem] 30 mg PO Q12HR PRN #30 tablet 05/18/19 [Rx] Nicotine Patch [Nicoderm] 21 mg TD DAILY #30 patch.td24 05/18/19 [Rx] Allergies/Adverse Reactions: Allergy/AdvReac Type Severity Reaction Status Date / Time No Known Allergies Allergy Verified 05/18/19 09:33 Date of admission: 05/17/19 05:52 Primary care physician: PCP NONE - Constitutional Vitals: Temp Pulse Resp BP Pulse Ox 97.7 F 71 15 127/77 99 05/18/19 07:43 05/18/19 07:43 05/18/19 07:43 05/18/19 07:43 05/18/19 07:43 General appearance: Present: cooperative, A&O X 3, no acute distress, answers questions appropriately Exam: Gen: Alert, awake, Oriented to time,place and person Chest: Diminished breath sounds B/L, No wheezing, No crackles, No rales Heart: S1S2+ RRR No murmurs Abd: Soft, NT, BS +, No organomegaly Ext: No edema, pulses are palpable, No calf tenderness Neuro : No acute focal neuro deficits noticed Skin: No rash. - Patient Status Disposition: Home, Self-Care Condition: Good Overall status at discharge: patient is back to baseline - Discharge Instructions Follow Up With: NONE,PCP [Primary Care Provider] - Rodrigo Tay MD [Non-Partnered Physician] - Forms: ED Satisfaction Letter - Diet and Activity Activity: increase activity as tolerated Diet: low salt diet
== END 2019-05-18 11:36 | disposition home or self-care (01) ==
LOC: 3BNU 01:57 → EMEROOARM 01:57 → SUATTDRO 05:52 → 3BNU 07:47
PROVIDERS: ADMIT Pediatrics; ATTEND Family Medicine